=== PATIENT | male | born 1990 | race Caucasian/White ===

== ENCOUNTER 2022-01-13 18:38 | Emergency (ER) | payer BC, SELFPAY ==
[2022-01-13 19:16] VITALS: BP 118/83; PULSE 77; RESP 18; TEMP 37.1; O2SAT 99; BMI 24.7
[2022-01-13] MEDS: HYOSCYAMINE SULFATE 0.125 MG TAB 0.25 MG SUBLINGUAL (20:56)
[2022-01-13] MEDS: KETOROLAC 60 MG/2 ML inj IM (20:57)
[2022-01-13] MEDS: GI COCKTAIL (VISC LIDO/ANTACID) 30 ML PO (21:00)
[2022-01-13] MEDS: OMEPRAZOLE 20 MG CAPSULE DR 40 MG PO (21:03)
[2022-01-13 22:00] VITALS: BP 112/70; PULSE 72; RESP 16; TEMP 36.7; O2SAT 96
--- NOTE | 2022-01-14 15:18 | ED.ABDPAIN ---
HPI - Abdominal Pain General Chief Complaint: Abdominal Pain Stated Complaint: Abdominal Pain Source: patient, RN notes reviewed and old records reviewed Mode of arrival: ambulatory Limitations: no limitations History of Present Illness HPI narrative: 31-year-old man returning to the emergency department with 2 days again of flaring abdominal pain. Underlying history of peptic ulcer disease, eosinophilic esophagitis and GERD (there seems to have been a question of hiatal hernia as well) with CT on January 02 noting thickening of the gastric antrum and duodenum consistent with PUD. More recent follow-up CT did not demonstrate this, essentially unremarkable. Mr. Maddy penny was on last visit to the emergency department prescribed viscous lidocaine foot to make GI cocktail switch it sounds like he is often taking 3 times a day. He says is not helping really anymore. He has only needed Zofran couple of times. I believe he has been taking Zantac. Unclear whether not he has taken his hyoscyamine. He has continued with Carafate q.i.d. dosing. Had been on a proton pump inhibitor but he says that his insurance maxed and so he has not had his what I believe was pantoprazole for a few weeks now. I admonished Mr. Flores in my last visit with him, 2 visits ago to this emergency department, to make some major dietary changes, lifestyle changes. And potentially consult with surgery if hiatal hernia is thought to be an issue. He continues to smoke cigarettes though says he has cut down a is smoking about a half a pack a day now. He has also cut down his Mountain Dew though arrives here with a can. He says he is replaced with Gatorade. He can stand water. Other dietary measures are more unclear. He rarely drinks alcohol it sounds like. He describes a burning pain like someone punching in the stomach as well. Has not yet had an EGD. He says he is trying to schedule with Dr. Galindo though and I press him on this it sounds as though there may be a January appointment already scheduled-?I think so?. Though he says he barely eats he may have dropped a couple lbs...maybe a few. He says he has been staying well hydrated. He is trying to eat 1 time a day at least. No melena described no hematochezia. I believe vomiting. No fever. Denies constipation Past medical surgical history as reviewed by me--- Does include eosinophilic esophagitis and a history of GERD, moderate persistent asthma without complication, history of anxiety, otitis media with tympanic membrane rupture in the past, history of surgery to hips and hand, this is a left hip arthroscopic labral repair, decompression, femoroplasty, hardware removal. Underlying history of psychosis at 1 point, some years ago. History of headaches. History of crush injury of fingers. Cellulitis of the foot, chest wall contusion. Did review imaging from December 22, 2020, showed some moderate thickening, mucosal hyperemia of the gastric antrum on abdomen and pelvis CT, 1st suspected peptic ulcer disease. Hepatomegaly and hepatic steatosis as well. Reports history of hiatal hernia. Nicotine dependence Family history- denies gastrointestinal carcinoma Related Data Home Medications Medication Instructions Recorded Confirmed albuterol sulfate 2.5 mg/3 mL mg 01/13/22 (0.083 %) solution for nebulization albuterol sulfate 90 mcg/actuation INHALATION 01/13/22 aerosol inhaler (Ventolin HFA) famotidine 20 mg tablet mg 01/13/22 lidocaine HCl 2 % mucosal solution 01/13/22 (Lidocaine Viscous) ondansetron 4 mg disintegrating mg 01/13/22 tablet pantoprazole 40 mg tablet,delayed mg PO 01/13/22 release sucralfate 1 gram tablet 01/13/22 Previous Rx's Medication Instructions Recorded dicyclomine 20 mg tablet 20 mg PO TID #45 tab 01/13/22 omeprazole 40 mg capsule,delayed 40 mg PO DAILY #30 cap 01/13/22 release Allergies Allergy/AdvReac Type Severity Reaction Status Date / Time No Known Drug Allergies Allergy Verified 01/13/22 19:27 Review of Systems Status of ROS Reports: 10 or more systems reviewed and unremarkable except as noted in History and below PFSH PFS Social History Smoking Status: Current every day smoker What tobacco products do you use: cigarettes Smoking packs per day: 1 Smoking cigarettes per day: 20.0 Years smoked: 17 Smoking pack-years: 17.00 Do you use any of these nicotine containing products: None Second hand tobacco smoke exposure: No How often do you have a drink containing alcohol: monthly or less How many standard drinks containing alcohol do you have on a typical day: 1 or 2 How often do you have six or more drinks on one occasion: Never AUDIT-C Alcohol total score: 1 Non-prescribed substance use: denies use service: No Exam Narrative: Exam Narrative: General-slim. Curled up in the bed upright, grimacing at times in apparent discomfort. Calm. Otherwise not demonstrating. Cranial nerves 2-12 intact moving all extremities without difficulty. Cigarette smoke and darkened fingers. HEENT-partially edentulate, hyperemic oropharynx. Atraumatic head Lungs-clear CV-RRR no MRG Abdomen is flat soft mildly tender in the epigastrium. No masses appreciated. Indicates area of discomfort though a little bit more in the mid abdomen as far as his sensation of pain goes generally. Normoactive bowel sounds. No peritoneal signs. Skin is warm and dry Extremities without edema. Well perfused. Const: Vital Signs, click to edit/add: Vital Signs - 24 hr 01/13/22 19:16 01/13/22 22:00 Temperature 98.8 F 98.1 F Pulse Rate [Pulse Oximeter] 77 72 Respiratory Rate 18 16 Blood Pressure [Ri ght Upper Arm] 118/83 112/70 Pulse Oximetry 99 96 Course Course Hospital Course: And does not appear that there is anything new here. Periodically and will have flares of pain. His abdomen is without red flag symptoms on exam. I discuss helping him break this pain cycle. He does not readily have a ride available. Ultimately we settle on a combination of what we had done before. He is given hyoscyamine, shot of ketorolac, GI cocktail, omeprazole 40 mg. After about an hour, little bit more, he does report improvement such that he feels he can go home. Vital Signs Vital signs: Initial Vital Signs Temperature 98.8 F 01/13/22 19:16 Temperature Source Temporal Artery Scan 01/13/22 19:16 Pulse Rate 77 01/13/22 19:16 Pulse Rhythm 01/13/22 19:16 Respiratory Rate 18 01/13/22 19:16 Blood Pressure 118/83 01/13/22 19:16 Blood Pressure Mean 94 01/13/22 19:16 Blood Pressure Position Supine 01/13/22 19:16 Pulse Oximetry 99 01/13/22 19:16 Oxygen Delivery Method 01/13/22 19:16 Vital Signs Temperature 98.8 F 01/13/22 19:16 Pulse Rate 77 01/13/22 19:16 Respiratory Rate 18 01/13/22 19:16 Blood Pressure 118/83 01/13/22 19:16 Pulse Oximetry 99 01/13/22 19:16 Temperature 98.1 F 01/13/22 22:00 Pulse Rate 72 01/13/22 22:00 Respiratory Rate 16 01/13/22 22:00 Blood Pressure 112/70 01/13/22 22:00 Pulse Oximetry 96 01/13/22 22:00 MDM - Abdominal Pain MDM Narrative Medical decision making narrative: I did discuss again dietary modifications that I think would be necessary for Farooq to adopt. Lifestyle changes as well would be critical. He does have follow-up with Dr. Galindo in Gastroenterology, I think. He will need to verify that appointment. He is becoming fairly maximally dosed/treated from a medical standpoint. However he has been without a proton pump inhibitor for several weeks. Was given a dose here. I did represcribe omeprazole 40 mg dosing as the pantoprazole per my understanding from conversation with him is that the pantoprazole is no longer covered. If he would have a flare of pain also discussed pain medication needs. I would seem that oral NSAIDs like ibuprofen or ketorolac that may have been helpful here today, would not be a good idea. Therefore given a small quantity of [place] from [facility]. We will also trial dicyclomine, I do a some concerns given his past medical. This would likely be better on an as-needed basis. He does have follow up after the weekend with primary care provider. I think he would benefit from a visit with a technology training associate. Encouraged to quit smoking and avoid carbonated/acidic beverages. Medical Records Attestation: I reviewed the patient's medical records. Discharge Plan Discharge Clinical Impression: Gastritis, Abdominal pain Patient Disposition: Home, Self-Care Condition: Improved Additional Instructions: Please be sure to follow up on Saturday as planned with your primary care provider. And confirm that January appointment with Dr. Galindo. Since you are telling me that pantoprazole is no longer covered for you and that you have not been taking it for weeks, switch over to omeprazole again; see prescription. You also have a prescription of dicyclomine you can take for cramping if the hyoscyamine is not working. can continue with your famotidine or ranitidine, whichever one is the one that you using. This can be somewhat taken on an as needed basis Return for persistent uncontrolled abdominal pain, associated fever. Prescriptions: New omeprazole 40 mg capsule,delayed release(DR/EC) 40 mg PO DAILY Qty: 30 3RF dicyclomine 20 mg tablet 20 mg PO TID Qty: 45 2RF Rx Instructions: for abdominal cramping No Action albuterol sulfate 2.5 mg /3 mL (0.083 %) solution for nebulization 0RF Label Comments: INHALE 3 ML (1 VIAL) VIA A NEBULIZER EVERY 4 HOURS NEEDED famotidine 20 mg tablet 0RF Label Comments: TAKE ONE TABLET BY MOUTH TWICE DAILY albuterol sulfate [Ventolin HFA] 90 mcg/actuation HFA aerosol inhaler INHALATION 0RF Label Comments: INHALE ONE OR TWO PUFFS BY MOUTH EVERY FOUR HOURS FOR SHORTNESS OF BREATH sucralfate 1 gram tablet 0RF Label Comments: TAKE ONE TABLET BY MOUTH FOUR TIMES DAILY pantoprazole 40 mg tablet,delayed release (DR/EC) PO 0RF Label Comments: TAKE ONE TABLET BY MOUTH ONE TIME DAILY lidocaine HCl [Lidocaine Viscous] 2 % solution 0RF Label Comments: MIX 15-30 ML WITH AN EQUIVALENT AMOUNT OF LIQUID ANTACID/ANTIGAS AND TAKE BY MOUTH TWICE DAILY NEEDED ondansetron 4 mg tablet,disintegrating 0RF Follow Up/Referrals: Shabana Morgan PA-C [Primary Care Provider] - Stand Alone [facility]
== END 2022-01-13 22:40 | disposition home or self-care (01) ==
PROVIDERS: Emergency Provider Family Medicine; PCP Physician Assistant Medical
DX: R10.9 Unspecified abdominal pain (principal); K29.70 Gastritis, unspecified, without bleeding
CPT/HCPCS: 96372; 99283; 99284; A9270; J1885

== ENCOUNTER 2022-06-25 07:30 | Day surgery (SDC) | payer BC, SELFPAY ==
[2022-06-25] MEDS: SODIUM CHLORIDE 0.9 % (FLUSH) 10 ML SYRINGE IVF (07:52)
[2022-06-25] MEDS: LACTATED RINGERS 1000 ML 1,000 ML 100 ML IV ×2 (07:52→10:05)
[2022-06-25 08:05] VITALS: BP 120/76; PULSE 79; RESP 18; TEMP 36.6; O2SAT 100; BMI 24.0
--- NOTE | 2022-06-25 08:09 | SUR.PREOP ---
Visualized patient's home covid test, results negative.
[2022-06-25] MEDS: BACITRACIN OINTMENT BULK TUBE 1 APPLIC TOPICAL (09:18)
[2022-06-25 09:25] VITALS: BP 95/44; PULSE 71; RESP 16; O2SAT 94
--- NOTE | 2022-06-25 09:25 | PM.GSPRC ---
Operative Note Date of procedure: 06/25/22 Type of Procedure: 1. Vasectomy. Procedure Description: After discussing the risks and benefits of the procedure, the patient signed informed consent.? The operative site was marked and the patient was brought to the operating room and placed on the operating table in supine position.? Care was taken to pad the patient's pressure points.?? The patient was then Sedated by anesthesia.?? The operative site was then prepped and draped in the usual sterile fashion.? A time-out was then performed. I first started on the right side. The right vas deferens was located in the scrotum.The vas was grasped with my fingers. 1% Lidocaine was injected at the site of surgical incision and around the vas deferens. The right scrotal incision was made with a scalpel. Soft tissues were dissected with a fine dissecting clamp. The vas deferens was clamped with a ring clamp. Fibrous tissue encasing the vas was peeled off bluntly until it was clear. Clips were placed on the proximal and distal ends of the vas deferens and 1 cm segment was excised. This segment was sent to pathology as the right vas deferens. Minimal oozing was seen from a vein adjacent to vas deferens and that was controlled with vascular clips. I then proceeded on the left side. The left vas deferens was located in the scrotum. The vas was grasped with my fingers. 1% Lidocaine was injected at the site of surgical incision and around the vas deferens. The left scrotal incision was made with a scalpel. Soft tissues were dissected with a fine dissecting clamp. The vas deferens was clamped with a ring clamp. Fibrous tissue encasing the vas was peeled off bluntly until it was clear. Clips were placed on the proximal and distal ends of the vas deferens and 1 cm segment was excised. This segment was sent to pathology as the left vas deferens. Minimal oozing was seen from a vein adjacent to vas deferens and that was controlled with vascular clips. Bilateral incisions were left open. Sterile gauze and Neosporin were placed over the incisions. ? The patient was then woken and transported to the recovery area in stable condition. ? The patient tolerated the procedure well. Anesthesia: MAC and local Surgeon: Kelsey Posadas MD Condition: stable Disposition: same day
--- NOTE | 2022-06-25 09:29 | W.ANESCHARGE ---
Anesthesia Charges Start Date/Time Anesthesia Start Date: 06/25/22 Anesthesia Start Time: 08:55 Stop Date/Time Anesthesia Stop Date: 06/25/22 Anesthesia Stop Time: 09:27 Summary Emergency: No
[2022-06-25 09:30] VITALS: BP 95/46; PULSE 71; RESP 16; O2SAT 95
--- NOTE | 2022-06-25 09:41 | W.ANESCHARGE ---
Anesthesia Charges Start Date/Time Anesthesia Start Date: 06/25/22 Anesthesia Start Time: 08:55 Stop Date/Time Anesthesia Stop Date: 06/25/22 Anesthesia Stop Time: 09:27 Summary Emergency: No
[2022-06-25 09:45] VITALS: BP 91/46; PULSE 63; RESP 16; O2SAT 97
[2022-06-25 10:00] VITALS: BP 93/46; PULSE 62; RESP 16; O2SAT 97
[2022-06-25 10:15] VITALS: BP 100/68; PULSE 73; RESP 16; O2SAT 99
== END 2022-06-25 10:25 | disposition home or self-care (01) ==
PROVIDERS: PCP Physician Assistant Medical; Visit Provider Surgery
PROC: (CPT 55250; principal; 2022-06-25 09:00)
DX: Z30.2 Encounter for sterilization (principal)
CPT/HCPCS: 55250; 00920; 00921; 88302; J1100; J1885; J2250; J2405; J2704; J3010; J7120

== ENCOUNTER 2022-09-09 07:34 | Emergency (ER) | payer BC, SELFPAY ==
[2022-09-09 07:41] VITALS: BP 135/83; PULSE 83; RESP 18; TEMP 36.6; O2SAT 100; BMI 22.7
--- NOTE | 2022-09-09 08:12 | ED_ITS ---
HPI - Abdominal Pain General Chief Complaint: Abdominal Pain Stated Complaint: Abdominal pain Time Seen by Provider: 09/09/22 07:57 History of Present Illness HPI narrative: This 31-year-old male comes in with upper epigastric abdominal pain. He states that he has a hiatal hernia and has recurrent pain typical to his current symptoms. He states that this pain came a couple days ago and has been intermittent during these past couple days. He does not report any fevers, vomiting, or diarrhea. He is taking ibuprofen and Vicodin which she states is for his hip pain. He also is taking Pepcid and Prilosec. He states that he is had a GI cocktail in the past which has helped him. He arrives here with normal vital signs. Related Data Home Medications Medication Instructions Recorded Confirmed albuterol sulfate 2.5 mg/3 mL mg 01/13/22 (0.083 %) solution for nebulization albuterol sulfate 90 mcg/actuation 1 - 2 puff inhalation Q4H PRN 01/13/22 06/25/22 aerosol inhaler (Ventolin HFA) famotidine 20 mg tablet 20 mg PO BID 01/13/22 06/25/22 lidocaine HCl 2 % mucosal solution 01/13/22 (Lidocaine Viscous) ondansetron 4 mg disintegrating mg 01/13/22 tablet pantoprazole 40 mg tablet,delayed mg PO 01/13/22 release sucralfate 1 gram tablet 01/13/22 acetaminophen 500 mg tablet 500 mg PO Q6H PRN 06/25/22 06/25/22 (Acetaminophen Extra Strength) cyclobenzaprine 10 mg tablet 10 mg PO TID PRN 06/25/22 06/25/22 fluticasone propionate 220 1 inh inhalation BID 06/25/22 06/25/22 mcg/actuation HFA aerosol inhaler (Flovent HFA) gabapentin 300 mg capsule mg 06/25/22 hydrocodone 5 mg-acetaminophen 325 1 tab PO BID PRN 06/25/22 06/25/22 mg tablet ibuprofen 800 mg tablet (IBU) 800 mg PO TID 06/25/22 06/25/22 meloxicam 15 mg tablet 15 mg PO DAILY 06/25/22 06/25/22 nabumetone 500 mg tablet 500 mg PO BID 06/25/22 06/25/22 naproxen 500 mg tablet,delayed 500 mg PO BID 06/25/22 06/25/22 release (EC-Naprosyn) ondansetron HCl 8 mg tablet 8 mg PO Q8H PRN 06/25/22 06/25/22 pantoprazole 40 mg tablet,delayed 40 mg PO DAILY 06/25/22 06/25/22 release (Protonix) sucralfate 100 mg/mL oral 1 g PO QID 06/25/22 06/25/22 suspension (Carafate) venlafaxine 75 mg capsule,extended 75 mg PO DAILY 06/25/22 06/25/22 release 24 hr (Effexor XR) Previous Rx's Medication Instructions Recorded dicyclomine 20 mg tablet 20 mg PO TID #45 tabs 01/13/22 omeprazole 40 mg capsule,delayed 40 mg PO DAILY #30 caps 01/13/22 release Allergies Allergy/AdvReac Type Severity Reaction Status Date / Time No Known Drug Allergies Allergy Verified 06/25/22 08:01 Review of Systems Status of ROS Reports: 10 or more systems reviewed and unremarkable except as noted in History and below Narrative Constitutional: No fevers, no weight gain or loss. Eyes: No discharge. No vision changes. HENT: No congestion, no sore throat, no ear pain. Cardiovascular: No chest pain, no palpitations. Respiratory: No shortness of breath, no wheezes, no cough. Gastrointestinal: No diarrhea. Upper epigastric abdominal pain as described above. Genitourinary: No dysuria, no hematuria. Musculoskeletal: Normal range of motion. Skin: No rashes, no pruritis. Neurological: No dizziness, weakness, sensory change, speech change. Endo/Heme/Allergies: No bruising or bleeding. No polydipsia. Pysch: no suicidality, no anxiety, no insomnia. All other systems reviewed and are negative. [facility] Medical History (Updated 09/09/22 @ 09:23 by Scotty Deleon MD) Anxiety Eosinophilic esophagitis Femoroacetabular impingement of right hip Moderate persistent asthma, uncomplicated Mood disorder Psychosis Social History Smoking Status: Current every day smoker What tobacco products do you use: cigarettes Smoking packs per day: 1 Smoking cigarettes per day: 20.0 Years smoked: 17 Smoking pack-years: 17.00 Do you use any of these nicotine containing products: None Second hand tobacco smoke exposure: No How often do you have a drink containing alcohol: monthly or less How many standard drinks containing alcohol do you have on a typical day: 1 or 2 How often do you have six or more drinks on one occasion: Never AUDIT-C Alcohol total score: 1 Non-prescribed substance use: denies use Caffeine: Yes service: No Exam Narrative: Exam Narrative: Constitutional: Well-developed, well-nourished, no acute distress. HEENT: Normocephalic, atraumatic. Neck: Normal range of motion. Nontender. Supple. Heart: Regular. No murmurs. Normal rate. Intact distal pulses. Lungs: Clear to auscultation. No chest discomfort. No wheezes, rhonchi, or rales. Abdomen: Normal bowel sounds. Tenderness in the upper epigastric region. No rebound tenderness. Genitalia: Deferred. Back: No midline tenderness. Normal range of motion. Extremities: Normal range of motion. No injury. Skin: Intact. No rash. Warm. No erythema or pallor. Neurologic: No altered sensation. No weakness. Alert and oriented. Psychiatric: No suicidality. No anxiety or depression. No insomnia. Nursing notes and vitals signs are reviewed. Const: Vital Signs, click to edit/add: Vital Signs - 24 hr 09/09/22 07:41 Temperature 97.9 F Pulse Rate [Right Pulse Oximeter] 83 Respiratory Rate 18 Blood Pressure [Ri ght Upper Arm] 135/83 Pulse Oximetry 100 Oxygen Delivery Me thod Room Air Course Vital Signs Vital signs: Initial Vital Signs Temperature 97.9 F 09/09/22 07:41 Temperature Source Temporal Artery Scan 09/09/22 07:41 Pulse Rate 83 09/09/22 07:41 Respiratory Rate 18 09/09/22 07:41 Blood Pressure 135/83 09/09/22 07:41 Blood Pressure Mean 100 09/09/22 07:41 Blood Pressure Position Sitting 09/09/22 07:41 Pulse Oximetry 100 09/09/22 07:41 Oxygen Delivery Method 09/09/22 07:41 Vital Signs Temperature 97.9 F 09/09/22 07:41 Pulse Rate 83 09/09/22 07:41 Respiratory Rate 18 09/09/22 07:41 Blood Pressure 135/83 09/09/22 07:41 Pulse Oximetry 100 09/09/22 07:41 Oxygen Delivery Method 09/09/22 07:41 Temperature 97.9 F 09/09/22 07:41 Pulse Rate 83 09/09/22 07:41 Respiratory Rate 18 09/09/22 07:41 Blood Pressure 135/83 09/09/22 07:41 Pulse Oximetry 100 09/09/22 07:41 Oxygen Delivery Method 09/09/22 07:41 MDM - Abdominal Pain MDM Narrative Medical decision making narrative: This patient comes in with upper epigastric abdominal pain that is recurrent and chronic which she attributes to a hiatal hernia. He states that he is taking Prilosec 40 mg daily and Pepcid. He is also taking Vicodin and ibuprofen daily for hip pain. An IV was established where he received 500 mL of fluids along with Toradol 30 mg and a GI cocktail orally. This brought sufficient relief to his symptoms. He has normal lab results. He is okay to be discharged home. I advised him to increase his Prilosec to twice a day for a week or 10 days. Additionally his chronic use of ibuprofen may be contributing to his symptoms so encouraged that he discontinue this medication. Lab Data Labs: Lab Results 09/09/22 09/09/22 Range/Units 08:30 08:30 WBC 9.03 (4.50-11.00) K/uL RBC 4.44 (4.30-5.90) m/uL Hgb 14.5 (13.5-17.5) gm/dL Hct 40.8 (37.0-53.0) % MCV 92 (80-100) fL MCH 33 (26-34) pg MCHC 36 (32-36) gm/dL RDW Coeff of Samy 11.1 L (11.5-15.5) % Plt Count 361 (140-440) K/uL Neut % (Auto) 71.3 (42.0-72.0) % Lymph % (Auto) 17.6 L (20-44) % [place] % (Auto) 7.0 (0.0-11.0) % Eos % (Auto) 2.9 (0.0-7.0) % Baso % (Auto) 0.3 (0.0-3.0) % Neut # (Auto) 6.44 (1.7-7.0) K/uL Lymph # (Auto) 1.60 (0.90-2.90) K/uL [place] # (Auto) 0.60 (0.00-0.90) K/UL Eos # (Auto) 0.26 (0.00-0.50) K/uL Baso # (Auto) 0.03 (0.00-0.30) K/uL Sodium 141 (135-149) mmol/L Potassium 4.2 (3.6-5.1) mmol/L Chloride 107 (96-114) mmol/L Carbon Dioxide 26 (20-32) mmol/L BUN 5 (5-24) mg/dL Creatinine 0.8 (0.5-1.5) mg/dL Estimated Creat Clear 139.91 Estimated GFR 121 ml/min Glucose 103 (60-115) mg/dL Calcium 9.4 (8.4-10.6) mg/dL Discharge Plan Discharge Clinical Impression: Gastritis, Hernia, hiatal Patient Disposition: Home, Self-Care Condition: Improved Additional Instructions: Okay to increase Prilosec to 40 mg twice daily for a week or 10 days. Is recommended to discontinue ibuprofen as this may be contributing to these symptoms. Follow up with MD or return if worsening. Prescriptions: No Action albuterol sulfate 2.5 mg /3 mL (0.083 %) solution for nebulization Label Comments: INHALE 3 ML (1 VIAL) VIA A NEBULIZER EVERY 4 HOURS NEEDED famotidine 20 mg tablet 20 mg PO BID Label Comments: TAKE ONE TABLET BY MOUTH TWICE DAILY albuterol sulfate [Ventolin HFA] 90 mcg/actuation HFA aerosol inhaler 1 - 2 puff INHALATION Q4H PRN Label Comments: INHALE ONE OR TWO PUFFS BY MOUTH EVERY FOUR HOURS FOR SHORTNESS OF BREATH sucralfate 1 gram tablet Label Comments: TAKE ONE TABLET BY MOUTH FOUR TIMES DAILY pantoprazole 40 mg tablet,delayed release (DR/EC) PO Label Comments: TAKE ONE TABLET BY MOUTH ONE TIME DAILY lidocaine HCl [Lidocaine Viscous] 2 % solution Label Comments: MIX 15-30 ML WITH AN EQUIVALENT AMOUNT OF LIQUID ANTACID/ANTIGAS AND TAKE BY MOUTH TWICE DAILY NEEDED ondansetron 4 mg tablet,disintegrating omeprazole 40 mg capsule,delayed release(DR/EC) 40 mg PO DAILY Qty: 30 3RF dicyclomine 20 mg tablet 20 mg PO TID Qty: 45 2RF Rx Instructions: for abdominal cramping acetaminophen [Acetaminophen Extra Strength] 500 mg tablet 500 mg PO Q6H PRN cyclobenzaprine 10 mg tablet 10 mg PO TID PRN fluticasone propionate [Flovent HFA] 220 mcg/actuation HFA aerosol inhaler 1 inh inhalation BID gabapentin 300 mg capsule Label Comments: TAKE ONE CAPSULE BY MOUTH AT BEDTIME hydrocodone-acetaminophen 5-325 mg tablet 1 tab PO BID PRN ibuprofen [IBU] 800 mg tablet 800 mg PO TID meloxicam 15 mg tablet 15 mg PO DAILY nabumetone 500 mg tablet 500 mg PO BID naproxen [EC-Naprosyn] 500 mg tablet,delayed release (DR/EC) 500 mg PO BID ondansetron HCl 8 mg tablet 8 mg PO Q8H PRN Rx Instructions: 1st dose 1-2 hr before radiation pantoprazole [Protonix] 40 mg tablet,delayed release (DR/EC) 40 mg PO DAILY sucralfate [Carafate] 100 mg/mL suspension 1 g PO QID venlafaxine [Effexor XR] 75 mg capsule,extended release 24hr 75 mg PO DAILY Follow Up/Referrals: Shabana Morgan PA-C [Primary Care Provider] - Stand Alone Forms: [facility] Info Instructions
[2022-09-09] MEDS: 0.9 % SODIUM CHLORIDE 500 ML 500 ML IV (08:30)
[2022-09-09] MEDS: ONDANSETRON 2 MG/ML inj 4 MG IVP (08:31)
[2022-09-09] MEDS: KETOROLAC 30 MG/ML inj IVP (08:32)
[2022-09-09] MEDS: GI COCKTAIL (VISC LIDO/ANTACID) 30 ML PO (08:35)
[2022-09-09 08:40] LABS: Basophils Absolute Auto 0.03 K/uL (0.00-0.30); Basophils Percent Auto 0.3 % (0.0-3.0); Eosinophils Absolute Auto 0.26 K/uL (0.00-0.50); Eosinophils Percent Auto 2.9 % (0.0-7.0); Hematocrit 40.8 % (37.0-53.0); Hemoglobin* 14.5 gm/dL (13.5-17.5); Immature Granulocytes Abs Auto 0.08 K/uL (0.00-0.30); Immature Granulocytes Pct Auto 0.9 %; Lymphocytes Percent Auto 17.6 % (20-44); Mean Corpuscular HGB Conc 36 gm/dL (32-36); Mean Corpuscular Hemoglobin 33 pg (26-34); Mean Corpuscular Volume 92 fL (80-100); Neutrophils Absolute Auto 6.44 K/uL (1.7-7.0); Neutrophils Percent Auto 71.3 % (42.0-72.0); Platelet Count* 361 K/uL (140-440); RDW Coefficient of Variation % 11.1 % (11.5-15.5); Red Blood Count 4.44 m/uL (4.30-5.90); White Blood Count* 9.03 K/uL (4.50-11.00)
[2022-09-09 08:43] LABS: Slide Review Reflex No
[2022-09-09 08:58] LABS: Chloride* 107 mmol/L (96-114); Potassium* 4.2 mmol/L (3.6-5.1); Sodium* 141 mmol/L (135-149)
[2022-09-09 09:01] LABS: Blood Urea Nitrogen* 5 mg/dL (5-24); Carbon Dioxide* 26 mmol/L (20-32); Creatinine* 0.8 mg/dL (0.5-1.5); Est. Creatinine Clearance* 139.91; Estimated Glomerular Filt Rate 121 ml/min; Glucose* 103 mg/dL (60-115)
[2022-09-09 09:02] LABS: Calcium* 9.4 mg/dL (8.4-10.6)
== END 2022-09-09 09:31 | disposition home or self-care (01) ==
PROVIDERS: Emergency Provider Emergency Medicine Emergency Medical Services; PCP Physician Assistant Medical
DX: K29.70 Gastritis, unspecified, without bleeding (principal); K44.9 Diaphragmatic hernia without obstruction or gangrene
CPT/HCPCS: 36415; 80048; 85025; 96374; 96375; 99284; A9270; J1885; J2405; J7120

== ENCOUNTER 2022-09-30 16:45 | Emergency (ER) | payer BC, SELFPAY ==
[2022-09-30 16:51] VITALS: BP 156/77; RESP 18; TEMP 37.7; O2SAT 98; BMI 23.7
--- NOTE | 2022-09-30 17:03 | ED.ABDPAIN ---
HPI - Abdominal Pain General Time Seen by Provider: 17:03 Date Seen: 09/30/22 Chief Complaint: Abdominal Pain Stated Complaint: worsening stomach and flank pain Time Seen by Provider: 09/30/22 16:47 Source: patient, RN notes reviewed and old records reviewed Mode of arrival: ambulatory Limitations: no limitations History of Present Illness HPI narrative: Patient is a 31-year-old male coming in with complaint of abdominal pain for over a month. He was seen last month in the ER, no reviewed. He has a history reported hiatal hernia and GERD. States the pain is progressed. He points to both sides of his upper abdomen where he is feeling the pain and he states it radiates and wraps around into his ?kidney areas?. It is reportedly disrupting his sleep, waking up sometimes from the pain. Is not eating as much. Feels like he has maybe lost some weight. Has not noted any fevers. Notes no changes in urination. No diarrhea, does note decreased bowel movements but admits he is not eating as much. He has had nausea, occasional vomiting. No urinary changes. He received GI cocktail some IV fluids last time he was in. He had some basic laboratory evaluation, did not require any imaging. He is not aware of any family history that is pertinent. Denies any alcohol use. Does smoke. No prior abdominal surgeries. He states he has been taking too much Tylenol. Related Data Home Medications Medication Instructions Recorded Confirmed albuterol sulfate 2.5 mg/3 mL mg 01/13/22 (0.083 %) solution for nebulization albuterol sulfate 90 mcg/actuation 1 - 2 puff inhalation Q4H PRN 01/13/22 06/25/22 aerosol inhaler (Ventolin HFA) famotidine 20 mg tablet 20 mg PO BID 01/13/22 06/25/22 lidocaine HCl 2 % mucosal solution 01/13/22 (Lidocaine Viscous) ondansetron 4 mg disintegrating mg 01/13/22 tablet pantoprazole 40 mg tablet,delayed mg PO 01/13/22 release sucralfate 1 gram tablet 01/13/22 acetaminophen 500 mg tablet 500 mg PO Q6H PRN 06/25/22 06/25/22 (Acetaminophen Extra Strength) cyclobenzaprine 10 mg tablet 10 mg PO TID PRN 06/25/22 06/25/22 fluticasone propionate 220 1 inh inhalation BID 06/25/22 06/25/22 mcg/actuation HFA aerosol inhaler (Flovent HFA) gabapentin 300 mg capsule mg 06/25/22 hydrocodone 5 mg-acetaminophen 325 1 tab PO BID PRN 06/25/22 06/25/22 mg tablet ibuprofen 800 mg tablet (IBU) 800 mg PO TID 06/25/22 06/25/22 meloxicam 15 mg tablet 15 mg PO DAILY 06/25/22 06/25/22 nabumetone 500 mg tablet 500 mg PO BID 06/25/22 06/25/22 naproxen 500 mg tablet,delayed 500 mg PO BID 06/25/22 06/25/22 release (EC-Naprosyn) ondansetron HCl 8 mg tablet 8 mg PO Q8H PRN 06/25/22 06/25/22 pantoprazole 40 mg tablet,delayed 40 mg PO DAILY 06/25/22 06/25/22 release (Protonix) sucralfate 100 mg/mL oral 1 g PO QID 06/25/22 06/25/22 suspension (Carafate) venlafaxine 75 mg capsule,extended 75 mg PO DAILY 06/25/22 06/25/22 release 24 hr (Effexor XR) Previous Rx's Medication Instructions Recorded dicyclomine 20 mg tablet 20 mg PO TID #45 tabs 01/13/22 omeprazole 40 mg capsule,delayed 40 mg PO DAILY #30 caps 01/13/22 release sucralfate 1 gram tablet (Carafate) 1 g PO Q6H #40 tabs 09/30/22 Allergies Allergy/AdvReac Type Severity Reaction Status Date / Time No Known Drug Allergies Allergy Verified 09/30/22 16:54 Review of Systems Status of ROS Reports: 10 or more systems reviewed and unremarkable except as noted in History and below [facility] Medical History Anxiety Eosinophilic esophagitis Femoroacetabular impingement of right hip Moderate persistent asthma, uncomplicated Mood disorder Psychosis Social History Smoking Status: Current every day smoker What tobacco products do you use: cigarettes Smoking packs per day: 1 Smoking cigarettes per day: 20.0 Years smoked: 17 Smoking pack-years: 17.00 Do you use any of these nicotine containing products: E-Cigarettes and Vaping Products Second hand tobacco smoke exposure: No How often do you have a drink containing alcohol: never AUDIT-C Alcohol total score: 0 Non-prescribed substance use: marijuana (any form) Caffeine: Yes service: No Exam Const: Vital Signs, click to edit/add: Vital Signs - 24 hr 09/30/22 16:51 09/30/22 17:38 Temperature 99.8 F H Respiratory Rate 18 Blood Pressure 144/90 H Blood Pressure [Ri ght Upper Arm] 156/77 H Pulse Oximetry 98 Oxygen Delivery Me thod Room Air Documenting provider has reviewed patient's vital signs: yes Common normals: no apparent distress, oriented x3, no limitations and alert General appearance: cooperative, comfortable and well kempt Nutritional appearance: thin HENMT: Common normals: normocephalic, head/scalp atraumatic, hearing grossly normal bilaterally, TM's normal bilaterally, external nose normal, nasal mucous membranes and turbinates normal, moist oral mucous membranes, oropharynx normal (But is edentulous) and gingiva normal Head and scalp: normocephalic and atraumatic Nose: external nose normal and nasal mucous membranes and turbinates normal Tympanic membrane: TM's normal bilaterally Eye: Common normals: PERRL, EOMs intact bilaterally, conjunctivae normal and no scleral icterus Conjunctiva: conjunctiva(e) normal Pupil: PERRL Neck & C-Spine: Common normals: full ROM, no lymphadenopathy, supple, no meningeal signs and thyroid normal Thyroid: thyroid normal Chest: Common normals: inspection of chest normal Resp: Common normals: normal respiratory effort, no retractions, no use of accessory muscles and clear to auscultation bilaterally Auscultation: clear to auscultation bilaterally Cardio: Common normals: regular rate, regular rhythm, S1 normal heart sound, S2 normal heart sound, no gallops, no clicks and no murmurs Rate: regular rate Rhythm: regular rhythm Heart sounds: S1 normal and S2 normal GI: Common normals: Normal to inspection, nondistended, normoactive bowel sounds present (Has thin abdomen, normal bowel sounds), soft to palpation, no hepatosplenomegaly and no masses Palpation: soft and no hepatosplenomegaly Other: Complains of general pain in the upper abdomen without rebound or guarding. : Common normals: no CVA tenderness Bladder/kidney exam: no CVA tenderness Back & Pelvis: Common normals: no CVA tenderness Neuro: Common normals: oriented x3 Sensorium/orientation: alert Meningeal signs: no meningeal signs Gait (neuro): normal gait Psych: Appearance: well kempt Course Course Hospital Course: Discussed options in approach of workup with patient. Given he has had pain over a month and is worsening, will recheck a full complement of labs. We are going to also obtain a CT of his abdomen pelvis with IV contrast. This does not strike me as an acute surgical abdomen based on my exam and history from him. Gastric, gallbladder issues, pancreas issues liver issues are all possible. Small bowel pathology such as inflammatory bowel disease certainly could be a risk. Will initiate L of IV fluids, 4 mg IV Zofran and 15 mg IV Toradol. If workup does not reveal any pathology or treatable etiology here, may need endoscopy. Reevaluation(s) Reevaluation #1: Reviewed with patient that his CT scan is completely normal. His labs are normal with the exception of a mild drop in his hemoglobin. He was in the 14 range when it was last checked last month. He is now down to 13.1 which is mildly anemic. He states he had a scope about a year ago. With his new current symptoms, reviewed with him that he needs an updated EGD. He states he has appointment with his primary care provider on Saturday. He is on omeprazole, famotidine. He needs to be on 40 mg of omeprazole at this time and take the famotidine twice a day. He is no longer on Carafate. I will add that back in to see if it will give him some comfort. Have asked him to minimize NSAIDs. He can stand Tylenol but needs to follow bottle directions for dosing. Discussed that I think it is his stomach, this could be gastritis, H pylori or ulcer disease. He needs further evaluation management with an EGD but does not require emergently at this time. Thus, follow up with primary care provider to get this scheduled. Time: 18:39 Vital Signs Vital signs: Initial Vital Signs Temperature 99.8 F H 09/30/22 16:51 Temperature Source Temporal Artery Scan 09/30/22 16:51 Respiratory Rate 18 09/30/22 16:51 Blood Pressure 156/77 H 09/30/22 16:51 Blood Pressure Mean 103 09/30/22 16:51 Blood Pressure Position Sitting 09/30/22 16:51 Pulse Oximetry 98 09/30/22 16:51 Oxygen Delivery Method 09/30/22 16:51 Vital Signs Temperature 99.8 F H 09/30/22 16:51 Respiratory Rate 18 09/30/22 16:51 Blood Pressure 156/77 H 09/30/22 16:51 Pulse Oximetry 98 09/30/22 16:51 Oxygen Delivery Method 09/30/22 16:51 Temperature 99.8 F H 09/30/22 16:51 Respiratory Rate 18 09/30/22 16:51 Blood Pressure 144/90 H 09/30/22 17:38 Pulse Oximetry 98 09/30/22 16:51 Oxygen Delivery Method 09/30/22 16:51 MDM - Abdominal Pain Lab Data Attestation: I reviewed the patient's lab results. Labs: Lab Results 09/30/22 09/30/22 09/30/22 Range/Units 17:30 17:30 17:30 WBC 9.59 (4.50-11.00) K/uL RBC 4.06 L (4.30-5.90) m/uL Hgb 13.1 L (13.5-17.5) gm/dL Hct 38.0 (37.0-53.0) % MCV 94 (80-100) fL MCH 32 (26-34) pg MCHC 35 (32-36) gm/dL RDW Coeff of Samy 11.2 L (11.5-15.5) % Plt Count 263 (140-440) K/uL Neut % (Auto) 66.0 (42.0-72.0) % Lymph % (Auto) 22.3 (20-44) % [place] % (Auto) 7.2 (0.0-11.0) % Eos % (Auto) 3.8 (0.0-7.0) % Baso % (Auto) 0.6 (0.0-3.0) % Neut # (Auto) 6.33 (1.7-7.0) K/uL Lymph # (Auto) 2.14 (0.90-2.90) K/uL [place] # (Auto) 0.70 (0.00-0.90) K/UL Eos # (Auto) 0.36 (0.00-0.50) K/uL Baso # (Auto) 0.06 (0.00-0.30) K/uL Sodium 133 L (135-149) mmol/L Potassium 3.8 (3.6-5.1) mmol/L Chloride 103 (96-114) mmol/L Carbon Dioxide 25 (20-32) mmol/L BUN 4 L (5-24) mg/dL Creatinine 0.7 (0.5-1.5) mg/dL Estimated Creat Clear 162.85 Estimated GFR 126 ml/min Glucose 84 (60-115) mg/dL Lactate 0.7 (0.5-1.9) mmol/L Calcium 8.6 (8.4-10.6) mg/dL Total Bilirubin 0.6 (0.1-1.5) mg/dL AST 17 (12-35) U/L ALT 18 (4-50) U/L Alkaline Phosphatase 60 (40-150) U/L C-Reactive Protein < 0.5 L (0.5-1.0) mg/dL Total Protein 6.9 (6.0-8.3) g/dL Albumin 4.3 (3.3-5.0) g/dL Lipase 61 (23-300) U/L Urine Color (Yellow) Urine Appearance (Clear) Urine pH (5.0-8.5) Ur Specific [place] (1.000-1.030) Urine Protein (Negative) Urine Glucose (UA) (Negative) Urine Ketones (Negative) Urine Blood (Negative) Urine Nitrite (Negative) Urine Bilirubin (Negative) Urine Urobilinogen (0.2-1.0) Ur Leukocyte Esterase (Negative) Urine RBC (0-2) Urine WBC (0-5) Ur Squamous Epith Cells (None-Few) Urine Bacteria (None) 09/30/22 Range/Units 17:33 WBC (4.50-11.00) K/uL RBC (4.30-5.90) m/uL Hgb (13.5-17.5) gm/dL Hct (37.0-53.0) % MCV (80-100) fL MCH (26-34) pg MCHC (32-36) gm/dL RDW Coeff of Samy (11.5-15.5) % Plt Count (140-440) K/uL Neut % (Auto) (42.0-72.0) % Lymph % (Auto) (20-44) % [place] % (Auto) (0.0-11.0) % Eos % (Auto) (0.0-7.0) % Baso % (Auto) (0.0-3.0) % Neut # (Auto) (1.7-7.0) K/uL Lymph # (Auto) (0.90-2.90) K/uL [place] # (Auto) (0.00-0.90) K/UL Eos # (Auto) (0.00-0.50) K/uL Baso # (Auto) (0.00-0.30) K/uL Sodium (135-149) mmol/L Potassium (3.6-5.1) mmol/L Chloride (96-114) mmol/L Carbon Dioxide (20-32) mmol/L BUN (5-24) mg/dL Creatinine (0.5-1.5) mg/dL Estimated Creat Clear Estimated GFR ml/min Glucose (60-115) mg/dL Lactate (0.5-1.9) mmol/L Calcium (8.4-10.6) mg/dL Total Bilirubin (0.1-1.5) mg/dL AST (12-35) U/L ALT (4-50) U/L Alkaline Phosphatase (40-150) U/L C-Reactive Protein (0.5-1.0) mg/dL Total Protein (6.0-8.3) g/dL Albumin (3.3-5.0) g/dL Lipase (23-300) U/L Urine Color Yellow (Yellow) Urine Appearance Clear (Clear) Urine pH 6.0 (5.0-8.5) Ur Specific [place] 1.015 (1.000-1.030) Urine Protein Negative (Negative) Urine Glucose (UA) Negative (Negative) Urine Ketones Negative (Negative) Urine Blood Negative (Negative) Urine Nitrite Negative (Negative) Urine Bilirubin Negative (Negative) Urine Urobilinogen 0.2 (0.2-1.0) Ur Leukocyte Esterase Negative (Negative) Urine RBC 0-2 (0-2) Urine WBC 0-2 (0-5) Ur Squamous Epith Cells Few (None-Few) Urine Bacteria None (None) Imaging Data CT scan - abdomen: Attestation: I have reviewed the pertinent imaging results. Radiologist's impression: Patient: BIANCA CHE Facility:?[facility] Patient ID:?[id number] Site Patient ID:?[id number]. Site :?[id number] Study:?CT Abdomen/Pelvis W/IV ONLY-09/30/2022 5:54:47 PM Ordering Physician:?Deloris Qiu Final Report: INDICATION: Abdominal pain for 1 month TECHNIQUE: CT abdomen and pelvis acquired with 83 mL Isovue 370 IV contrast. COMPARISON: 12/25/[address] FINDINGS: Lower chest: Unremarkable. Liver: Unremarkable. Normal in size and attenuation. No masses. Gallbladder and bile ducts: Unremarkable. No stones or inflammation. No biliary dilatation. Pancreas: Unremarkable. No mass or inflammation. Spleen: Unremarkable. Normal in size. No masses. Adrenal glands: Unremarkable. No nodules. Kidneys: Unremarkable. No masses, stones, or hydronephrosis. GI tract: Unremarkable. Normal in caliber. No sign of mass or inflammation. Normal appendix. Vasculature: Unremarkable. Mesenteric arteries are patent. Lymph nodes: No lymphadenopathy. Omentum/Peritoneum/Abdominal Wall: Unremarkable. No sign of mass or infiltration. No free air or significant free fluid. Pelvis: Unremarkable. Bones: Unremarkable for age. IMPRESSION: Normal abdomen pelvis CT. Please note that all CT scans at this facility use dose modulation, iterative reconstruction, and/or weight-based dosing when appropriate to reduce radiation dose to as low as reasonably achievable. Dictated by Andrea Resendiz MD @ 09/30/2022 6:22:32 PM (Electronic Signature) Critical Care Time Critical Care Time Critical Care Time: No Discharge Plan Discharge Clinical Impression: Anemia, Abdominal pain Patient Disposition: Home, Self-Care Condition: Stable Instructions: Diet for Stomach Ulcers and Gastritis (ED), GERD (Gastroesophageal Reflux Disease) (ED) Additional Instructions: You need to be on omeprazole 40 mg daily and take the famotidine twice daily. You can try the Carafate up to 4 times a day to see if this helps. You need to have an updated EGD. Your hemoglobin has shown a mild drop from the last time we ordered it here. Thus, concern for such things like gastritis, ulcer disease in your stomach our concerns at this time. Please review this with her primary care provider on Saturday to get scheduled for an updated EGD. Prescriptions: New sucralfate [Carafate] 1 gram tablet 1 g PO Q6H Qty: 40 0RF No Action albuterol sulfate 2.5 mg /3 mL (0.083 %) solution for nebulization Label Comments: INHALE 3 ML (1 VIAL) VIA A NEBULIZER EVERY 4 HOURS NEEDED famotidine 20 mg tablet 20 mg PO BID Label Comments: TAKE ONE TABLET BY MOUTH TWICE DAILY albuterol sulfate [Ventolin HFA] 90 mcg/actuation HFA aerosol inhaler 1 - 2 puff INHALATION Q4H PRN Label Comments: INHALE ONE OR TWO PUFFS BY MOUTH EVERY FOUR HOURS FOR SHORTNESS OF BREATH sucralfate 1 gram tablet Label Comments: TAKE ONE TABLET BY MOUTH FOUR TIMES DAILY pantoprazole 40 mg tablet,delayed release (DR/EC) PO Label Comments: TAKE ONE TABLET BY MOUTH ONE TIME DAILY lidocaine HCl [Lidocaine Viscous] 2 % solution Label Comments: MIX 15-30 ML WITH AN EQUIVALENT AMOUNT OF LIQUID ANTACID/ANTIGAS AND TAKE BY MOUTH TWICE DAILY NEEDED ondansetron 4 mg tablet,disintegrating omeprazole 40 mg capsule,delayed release(DR/EC) 40 mg PO DAILY Qty: 30 3RF dicyclomine 20 mg tablet 20 mg PO TID Qty: 45 2RF Rx Instructions: for abdominal cramping acetaminophen [Acetaminophen Extra Strength] 500 mg tablet 500 mg PO Q6H PRN cyclobenzaprine 10 mg tablet 10 mg PO TID PRN fluticasone propionate [Flovent HFA] 220 mcg/actuation HFA aerosol inhaler 1 inh inhalation BID gabapentin 300 mg capsule Label Comments: TAKE ONE CAPSULE BY MOUTH AT BEDTIME hydrocodone-acetaminophen 5-325 mg tablet 1 tab PO BID PRN ibuprofen [IBU] 800 mg tablet 800 mg PO TID meloxicam 15 mg tablet 15 mg PO DAILY nabumetone 500 mg tablet 500 mg PO BID naproxen [EC-Naprosyn] 500 mg tablet,delayed release (DR/EC) 500 mg PO BID ondansetron HCl 8 mg tablet 8 mg PO Q8H PRN Rx Instructions: 1st dose 1-2 hr before radiation pantoprazole [Protonix] 40 mg tablet,delayed release (DR/EC) 40 mg PO DAILY sucralfate [Carafate] 100 mg/mL suspension 1 g PO QID venlafaxine [Effexor XR] 75 mg capsule,extended release 24hr 75 mg PO DAILY Follow Up/Referrals: Shabana Morgan PACami [Primary Care Provider] - Stand Alone Forms: [facility] Info Instructions
--- NOTE | 2022-09-30 17:09 | CRLHL7_ITS ---
For Patients: As a result of the Century Cures Act, medical imaging exams and procedure reports are released immediately into your electronic medical record. You may view this report before your referring provider. If you have questions, please contact your health care provider. INDICATION: Abdominal pain for 1 month TECHNIQUE: CT abdomen and pelvis acquired with 83 mL Isovue 370 IV contrast. COMPARISON: 12/25/[address] FINDINGS: Lower chest: Unremarkable. Liver: Unremarkable. Normal in size and attenuation. No masses. Gallbladder and bile ducts: Unremarkable. No stones or inflammation. No biliary dilatation. Pancreas: Unremarkable. No mass or inflammation. Spleen: Unremarkable. Normal in size. No masses. Adrenal glands: Unremarkable. No nodules. Kidneys: Unremarkable. No masses, stones, or hydronephrosis. GI tract: Unremarkable. Normal in caliber. No sign of mass or inflammation. Normal appendix. Vasculature: Unremarkable. Mesenteric arteries are patent. Lymph nodes: No lymphadenopathy. Omentum/Peritoneum/Abdominal Wall: Unremarkable. No sign of mass or infiltration. No free air or significant free fluid. Pelvis: Unremarkable. Bones: Unremarkable for age. IMPRESSION: Normal abdomen pelvis CT. Please note that all CT scans at this facility use dose modulation, iterative reconstruction, and/or weight-based dosing when appropriate to reduce radiation dose to as low as reasonably achievable. Dictated by Andrea Resendiz MD @ 09/30/2022 6:22:32 PM (Electronically Signed)
[2022-09-30] MEDS: ONDANSETRON 2 MG/ML inj 4 MG IVP (17:31)
[2022-09-30] MEDS: KETOROLAC 15 MG/ML inj IVP (17:31)
[2022-09-30] MEDS: 0.9 % SODIUM CHLORIDE 1000 ml 1,000 ML IV (17:32)
[2022-09-30 17:38] VITALS: BP 144/90
[2022-09-30 17:39] LABS: Lactate* 0.7 mmol/L (0.5-1.9)
[2022-09-30 17:42] LABS: Appearance Urine Clear (Clear); Bilirubin Urine Negative (Negative); Blood Urine Negative (Negative); Color Urine Yellow (Yellow); Glucose Urine Negative (Negative); Ketones Urine Negative (Negative); Leukocyte Esterase Urine Negative (Negative); Nitrite Urine Negative (Negative); Protein Urine Negative (Negative); RBC Urine 0-2 (0-2); Specific Gravity Urine 1.015 (1.000-1.030); Squamous Epithelial Cell Urine Few (None-Few); Urobilinogen Urine 0.2 (0.2-1.0); WBC Urine 0-2 (0-5)
[2022-09-30 17:43] LABS: Basophils Absolute Auto 0.06 K/uL (0.00-0.30); Basophils Percent Auto 0.6 % (0.0-3.0); Eosinophils Absolute Auto 0.36 K/uL (0.00-0.50); Eosinophils Percent Auto 3.8 % (0.0-7.0); Hemoglobin* 13.1 gm/dL (13.5-17.5); Immature Granulocytes Abs Auto 0.01 K/uL (0.00-0.30); Immature Granulocytes Pct Auto 0.1 %; Lymphocytes Absolute Auto 2.14 K/uL (0.90-2.90); Lymphocytes Percent Auto 22.3 % (20-44); Mean Corpuscular HGB Conc 35 gm/dL (32-36); Mean Corpuscular Hemoglobin 32 pg (26-34); Mean Corpuscular Volume 94 fL (80-100); Monocytes Percent Auto 7.2 % (0.0-11.0); Neutrophils Absolute Auto 6.33 K/uL (1.7-7.0); Platelet Count* 263 K/uL (140-440); RDW Coefficient of Variation % 11.2 % (11.5-15.5); Red Blood Count 4.06 m/uL (4.30-5.90); Slide Review Reflex No; White Blood Count* 9.59 K/uL (4.50-11.00)
[2022-09-30 17:55] LABS: Chloride* 103 mmol/L (96-114)
[2022-09-30 17:56] LABS: Albumin* 4.3 g/dL (3.3-5.0); Potassium* 3.8 mmol/L (3.6-5.1); Sodium* 133 mmol/L (135-149)
[2022-09-30 17:58] LABS: Creatinine* 0.7 mg/dL (0.5-1.5); Est. Creatinine Clearance* 162.85; Estimated Glomerular Filt Rate 126 ml/min
[2022-09-30 17:59] LABS: Alanine Aminotransferase* 18 U/L (4-50); Alkaline Phosphatase* 60 U/L (40-150); Aspartate Amino Transferase* 17 U/L (12-35); Bilirubin Total* 0.6 mg/dL (0.1-1.5); Blood Urea Nitrogen* 4 mg/dL (5-24); Carbon Dioxide* 25 mmol/L (20-32); Lipase* 61 U/L (23-300); Total Protein* 6.9 g/dL (6.0-8.3)
[2022-09-30 18:00] LABS: Calcium* 8.6 mg/dL (8.4-10.6); Glucose* 84 mg/dL (60-115)
[2022-09-30 18:05] LABS: C Reactive Protein* < 0.5 mg/dL (0.5-1.0)
== END 2022-09-30 18:55 | disposition home or self-care (01) ==
PROVIDERS: Emergency Provider Family Medicine; PCP Physician Assistant Medical
DX: R10.9 Unspecified abdominal pain (principal); D64.9 Anemia, unspecified
CPT/HCPCS: 36415; 74177; 80053; 81001; 83605; 83690; 85025; 86140; 96374; 96375; 99284; J1885; J2405; J7030; Q9967

== ENCOUNTER 2022-10-01 20:58 | Emergency (ER) | payer BC, SELFPAY ==
[2022-10-01 21:00] VITALS: BP 134/107; PULSE 120; RESP 16; TEMP 36.6; O2SAT 100; BMI 23.7
--- NOTE | 2022-10-01 21:01 | ED.ABDPAIN ---
HPI - Abdominal Pain General Time Seen by Provider: 21:01 Date Seen: 10/01/22 Chief Complaint: Abdominal Pain Stated Complaint: Vomiting Time Seen by Provider: 10/01/22 21:01 Source: patient, RN notes reviewed and old records reviewed Mode of arrival: ambulatory Limitations: no limitations History of Present Illness HPI narrative: Patient is a 31-year-old male with history of GERD who comes to the emergency room with abdominal pain. Patient notes the sudden onset of right lower abdominal pain which is new for him. It is associated with vomiting but no diarrhea. States he really has not had a lot to eat in the past 2 days because his GERD but has been acting up over the past month. He has not had fever or chills. He has not noticed any unusual bulging in his groin or into his scrotum and has no history of hernia. This has not happened to him in the past. Pain does not radiate into his back. He has not noticed any blood in his urine. He denies dysuria. He is unable to relax during our interactions. I did state that I needed to ask him questions and examine him prior to giving him any medications in this seems to frustrate him significantly. He tells me that he has had 1 month or even longer of increasing problems with his reflux. He is on omeprazole for that. He notes that this pain is different in came on suddenly today. No fever, back pain, history of kidney stones. Note nursing staff noted improvement of symptoms after saline flush. Patient symptoms worsened wants it was recognized that this was not medication. Related Data Home Medications Medication Instructions Recorded Confirmed albuterol sulfate 2.5 mg/3 mL mg 01/13/22 (0.083 %) solution for nebulization albuterol sulfate 90 mcg/actuation 1 - 2 puff inhalation Q4H PRN 01/13/22 06/25/22 aerosol inhaler (Ventolin HFA) famotidine 20 mg tablet 20 mg PO BID 01/13/22 06/25/22 lidocaine HCl 2 % mucosal solution 01/13/22 (Lidocaine Viscous) ondansetron 4 mg disintegrating mg 01/13/22 tablet pantoprazole 40 mg tablet,delayed mg PO 01/13/22 release sucralfate 1 gram tablet 01/13/22 acetaminophen 500 mg tablet 500 mg PO Q6H PRN 06/25/22 06/25/22 (Acetaminophen Extra Strength) cyclobenzaprine 10 mg tablet 10 mg PO TID PRN 06/25/22 06/25/22 fluticasone propionate 220 1 inh inhalation BID 06/25/22 06/25/22 mcg/actuation HFA aerosol inhaler (Flovent HFA) gabapentin 300 mg capsule mg 06/25/22 hydrocodone 5 mg-acetaminophen 325 1 tab PO BID PRN 06/25/22 06/25/22 mg tablet ibuprofen 800 mg tablet (IBU) 800 mg PO TID 06/25/22 06/25/22 meloxicam 15 mg tablet 15 mg PO DAILY 06/25/22 06/25/22 nabumetone 500 mg tablet 500 mg PO BID 06/25/22 06/25/22 naproxen 500 mg tablet,delayed 500 mg PO BID 06/25/22 06/25/22 release (EC-Naprosyn) ondansetron HCl 8 mg tablet 8 mg PO Q8H PRN 06/25/22 06/25/22 pantoprazole 40 mg tablet,delayed 40 mg PO DAILY 06/25/22 06/25/22 release (Protonix) sucralfate 100 mg/mL oral 1 g PO QID 06/25/22 06/25/22 suspension (Carafate) venlafaxine 75 mg capsule,extended 75 mg PO DAILY 06/25/22 06/25/22 release 24 hr (Effexor XR) Previous Rx's Medication Instructions Recorded dicyclomine 20 mg tablet 20 mg PO TID #45 tabs 01/13/22 omeprazole 40 mg capsule,delayed 40 mg PO DAILY #30 caps 01/13/22 release sucralfate 1 gram tablet (Carafate) 1 g PO Q6H #40 tabs 09/30/22 Allergies Allergy/AdvReac Type Severity Reaction Status Date / Time No Known Drug Allergies Allergy Verified 09/30/22 16:54 Review of Systems Status of ROS Reports: unobtainable due to medical condition Narrative Patient poorly intolerant to questioning. He does deny fever chills, cough congestion, diarrhea, constipation, dysuria, hematuria. [facility] Medical History Anxiety Eosinophilic esophagitis Femoroacetabular impingement of right hip Moderate persistent asthma, uncomplicated Mood disorder Psychosis Social History Smoking Status: Current every day smoker What tobacco products do you use: cigarettes Smoking packs per day: 1 Smoking cigarettes per day: 20.0 Years smoked: 17 Smoking pack-years: 17.00 Do you use any of these nicotine containing products: E-Cigarettes and Vaping Products Second hand tobacco smoke exposure: No How often do you have a drink containing alcohol: never AUDIT-C Alcohol total score: 0 Non-prescribed substance use: marijuana (any form) Caffeine: Yes service: No Exam Narrative: Exam Narrative: Very dramatic presentation. Great weighing and moaning. External ears eyes nose canoe clear. I did state that I would be unable to give him any medications until I did exam and he was able to answer questions. Now he is giving me one-word answers and yelling them at me. Eyes are clear. No evidence of tremulous. Oral cavity with moist mucous membranes. Heart with a tachycardic rate but normal rhythm. Lungs are clear in all lung martino. Abdomen is firm. He will not relax is abdomen for me I do have him bend his knees. He is able to sit up from a lying down position and sitting up without much difficulty. No CVA tenderness with percussion. He has a hypersensitivity palpation response to my touch on the right lower quadrant. No rebound tenderness. Exam again inconsistent. No unusual bulging or evidence of groin all hernia or testicular abnormality. Const: Vital Signs, click to edit/add: Vital Signs - 24 hr 10/01/22 21:00 10/01/22 21:05 10/01/22 22:03 Temperature 97.8 F 97.8 F 97.8 F Pulse Rate [Left P ulse Oximeter] 120 H 115 H Respiratory Rate 16 16 Blood Pressure [Le ft Upper Arm] 134/107 H 145/102 H Pulse Oximetry 100 100 Oxygen Delivery Me thod Room Air Room Air 10/01/22 21:10 Temperature Pulse Rate [Left P ulse Oximeter] Respiratory Rate Blood Pressure [Le ft Upper Arm] Pulse Oximetry 100 Oxygen Delivery Me thod Documenting provider has reviewed patient's vital signs: yes Course Course Hospital Course: At this time patient has a very dramatic presentation. Will give him Toradol 15 mg and Ativan 0.5 mg. 1 L of normal saline. It should be noted that after ordering this nursing discovered that this was not the correct patient and previous orders were canceled. Patient is also noted to been seen yesterday in the emergency room by . Farooq did not share this information with me. I look back at previous notes and he has had what appears to be chronic abdominal pain for quite some time. August it was noted that he had been on Vicodin for that. I do look at the [employer] and he has had frequent narcotic prescriptions only 14 in number approximately every 2 weeks by LISA Ac from the [facility]. Yesterday patient had a CT which was without acute findings. Reevaluation(s) Reevaluation #1: I do check on patient after medication administration. He is objectively moderately improved but states that he is still having pain. I did state to him that I learned of his visit yesterday and noted that his CT was normal at that time. I do not feel comfortable giving him any stronger pain medications in the form of her narcotic and this is conveyed to him. We could use droperidol 0.625 mg and he is receptive to that. He arrives with complaints of right lower quadrant pain but continues to grab his epigastrium while I am in the room. Note that behavior is much improved when we depart the room. Reevaluation #2: Patient is informed that his labs that have been returned are normal. He tells me that his abdomen is still hurting and I do suggest that we repeat the CT given pain out of proportion to exam. He states he would rather go home and smoke THC. I do have him sign AMA. As he is leaving I do offer Carafate or GI cocktail and he is receptive to GI cocktail. He is telling me that his feels like his insides are being ripped out. I do state to him that labs look good but I am happy to go forward with a CT. At about that time his urine comes back with 4+ ketones. He did receive 1 L of saline here tonight. I do request that he stay for more fluids and a CT but he is declining. Does appear to be able to make his own decisions and does not appear to be under the influence. Vital Signs Vital signs: Initial Vital Signs Temperature 97.8 F 10/01/22 21:00 Temperature Source Temporal Artery Scan 10/01/22 21:00 Pulse Rate 120 H 10/01/22 21:00 Respiratory Rate 16 10/01/22 21:00 Blood Pressure 134/107 H 10/01/22 21:00 Blood Pressure Mean 116 10/01/22 21:00 Blood Pressure Position Sitting 10/01/22 21:00 Pulse Oximetry 100 10/01/22 21:00 Oxygen Delivery Method 10/01/22 21:00 Vital Signs Temperature 97.8 F 10/01/22 21:00 Pulse Rate 120 H 10/01/22 21:00 Respiratory Rate 16 10/01/22 21:00 Blood Pressure 134/107 H 10/01/22 21:00 Pulse Oximetry 100 10/01/22 21:00 Oxygen Delivery Method 10/01/22 21:00 Temperature 97.8 F 10/01/22 22:03 Pulse Rate 115 H 10/01/22 22:03 Respiratory Rate 16 10/01/22 22:03 Blood Pressure 145/102 H 10/01/22 22:03 Pulse Oximetry 100 10/01/22 22:03 Oxygen Delivery Method 10/01/22 22:03 MDM - Abdominal Pain MDM Narrative Medical decision making narrative: 1. Acute on chronic abdominal pain-patient's laboratory values are reassuring at this time with no evidence of an elevated lactate, leukocytosis, abnormal LFTs and CRP is normal as well. With these findings and a negative CT yesterday as well as exam that did not suggest a medical emergency I felt that treating his pain with non narcotics was best. I did initially treat him with Toradol before I realized that he had had a history of significant GERD noted in his chart. Also gave him Ativan 0.5 mg and although he says he was not improved objectively it appeared he was. I then given droperidol 0.625 mg IV. Observations of patient were noted to have him be watching TV but he was very impatient and stated if we were not going to keep him he was going to leave. I do not have reason to keep him but of course suggested CT with his continued complaints but he declines. He did except a GI cocktail but declined any further fluids when it was noted the had 4+ ketonuria. Glucose is normal. He does sign AMA at this time. I did state that he could return if he change his mind about the abdominal CT. We will not be using narcotics for this particular pain. 2. Disposition -home with . Follow-up with Shabana Ac to set up GI consult. Signs AMA. Does appear to be able to make his own decisions and understand consequences of not following through with repeat CT or further fluids. He does agree that he will try to drink more fluids at home. Patient does note he will be going home to smoke THC. While he does have a history of underlying GERD, I am unsure of how much marijuana he is using and he may have a component of a hyper emesis type picture although there was no vomiting here in the ED. Medical Records Attestation: I reviewed the patient's medical records. Lab Data Attestation: I reviewed the patient's lab results. Labs: Lab Results 10/01/22 10/01/22 10/01/22 Range/Units 20:50 20:50 21:05 WBC 7.33 (4.50-11.00) K/uL RBC 4.23 L (4.30-5.90) m/uL Hgb 13.9 (13.5-17.5) gm/dL Hct 39.4 (37.0-53.0) % MCV 93 (80-100) fL MCH 33 (26-34) pg MCHC 35 (32-36) gm/dL RDW Coeff of Samy 11.2 L (11.5-15.5) % Plt Count 306 (140-440) K/uL Neut % (Auto) 69.4 (42.0-72.0) % Lymph % (Auto) 20.9 (20-44) % [place] % (Auto) 7.2 (0.0-11.0) % Eos % (Auto) 2.0 (0.0-7.0) % Baso % (Auto) 0.4 (0.0-3.0) % Neut # (Auto) 5.08 (1.7-7.0) K/uL Lymph # (Auto) 1.53 (0.90-2.90) K/uL [place] # (Auto) 0.50 (0.00-0.90) K/UL Eos # (Auto) 0.15 (0.00-0.50) K/uL Baso # (Auto) 0.03 (0.00-0.30) K/uL Sodium 135 (135-149) mmol/L Potassium 4.0 (3.6-5.1) mmol/L Chloride 103 (96-114) mmol/L Carbon Dioxide 22 (20-32) mmol/L BUN 5 (5-24) mg/dL Creatinine 0.7 (0.5-1.5) mg/dL Estimated Creat Clear 162.85 Estimated GFR 126 ml/min Glucose 101 (60-115) mg/dL Lactate (0.5-1.9) mmol/L Calcium 9.2 (8.4-10.6) mg/dL Total Bilirubin 0.8 (0.1-1.5) mg/dL AST 21 (12-35) U/L ALT 18 (4-50) U/L Alkaline Phosphatase 72 (40-150) U/L C-Reactive Protein 0.5 (0.5-1.0) mg/dL Total Protein 7.4 (6.0-8.3) g/dL Albumin 4.6 (3.3-5.0) g/dL Lipase 242 (23-300) U/L Urine Color Yellow (Yellow) Urine Appearance Clear (Clear) Urine pH 5.5 (5.0-8.5) Ur Specific [place] 1.025 (1.000-1.030) Urine Protein 1+ A (Negative) Urine Glucose (UA) Negative (Negative) Urine Ketones 4+ A (Negative) Urine Blood Trace-intact A (Negative) Urine Nitrite Negative (Negative) Urine Bilirubin 1+ A (Negative) Urine Urobilinogen 0.2 (0.2-1.0) Ur Leukocyte Esterase Negative (Negative) 10/01/22 Range/Units 21:05 WBC (4.50-11.00) K/uL RBC (4.30-5.90) m/uL Hgb (13.5-17.5) gm/dL Hct (37.0-53.0) % MCV (80-100) fL MCH (26-34) pg MCHC (32-36) gm/dL RDW Coeff of Samy (11.5-15.5) % Plt Count (140-440) K/uL Neut % (Auto) (42.0-72.0) % Lymph % (Auto) (20-44) % [place] % (Auto) (0.0-11.0) % Eos % (Auto) (0.0-7.0) % Baso % (Auto) (0.0-3.0) % Neut # (Auto) (1.7-7.0) K/uL Lymph # (Auto) (0.90-2.90) K/uL [place] # (Auto) (0.00-0.90) K/UL Eos # (Auto) (0.00-0.50) K/uL Baso # (Auto) (0.00-0.30) K/uL Sodium (135-149) mmol/L Potassium (3.6-5.1) mmol/L Chloride (96-114) mmol/L Carbon Dioxide (20-32) mmol/L BUN (5-24) mg/dL Creatinine (0.5-1.5) mg/dL Estimated Creat Clear Estimated GFR ml/min Glucose (60-115) mg/dL Lactate 0.7 (0.5-1.9) mmol/L Calcium (8.4-10.6) mg/dL Total Bilirubin (0.1-1.5) mg/dL AST (12-35) U/L ALT (4-50) U/L Alkaline Phosphatase (40-150) U/L C-Reactive Protein (0.5-1.0) mg/dL Total Protein (6.0-8.3) g/dL Albumin (3.3-5.0) g/dL Lipase (23-300) U/L Urine Color (Yellow) Urine Appearance (Clear) Urine pH (5.0-8.5) Ur Specific [place] (1.000-1.030) Urine Protein (Negative) Urine Glucose (UA) (Negative) Urine Ketones (Negative) Urine Blood (Negative) Urine Nitrite (Negative) Urine Bilirubin (Negative) Urine Urobilinogen (0.2-1.0) Ur Leukocyte Esterase (Negative) Discharge Plan Discharge Clinical Impression: Abdominal pain Patient Disposition: Left Against Medical Advice Condition: Improved Prescriptions: No Action sucralfate [Carafate] 1 gram tablet 1 g PO Q6H Qty: 40 0RF albuterol sulfate 2.5 mg /3 mL (0.083 %) solution for nebulization Label Comments: INHALE 3 ML (1 VIAL) VIA A NEBULIZER EVERY 4 HOURS NEEDED famotidine 20 mg tablet 20 mg PO BID Label Comments: TAKE ONE TABLET BY MOUTH TWICE DAILY albuterol sulfate [Ventolin HFA] 90 mcg/actuation HFA aerosol inhaler 1 - 2 puff INHALATION Q4H PRN Label Comments: INHALE ONE OR TWO PUFFS BY MOUTH EVERY FOUR HOURS FOR SHORTNESS OF BREATH sucralfate 1 gram tablet Label Comments: TAKE ONE TABLET BY MOUTH FOUR TIMES DAILY pantoprazole 40 mg tablet,delayed release (DR/EC) PO Label Comments: TAKE ONE TABLET BY MOUTH ONE TIME DAILY lidocaine HCl [Lidocaine Viscous] 2 % solution Label Comments: MIX 15-30 ML WITH AN EQUIVALENT AMOUNT OF LIQUID ANTACID/ANTIGAS AND TAKE BY MOUTH TWICE DAILY NEEDED ondansetron 4 mg tablet,disintegrating omeprazole 40 mg capsule,delayed release(DR/EC) 40 mg PO DAILY Qty: 30 3RF dicyclomine 20 mg tablet 20 mg PO TID Qty: 45 2RF Rx Instructions: for abdominal cramping acetaminophen [Acetaminophen Extra Strength] 500 mg tablet 500 mg PO Q6H PRN cyclobenzaprine 10 mg tablet 10 mg PO TID PRN fluticasone propionate [Flovent HFA] 220 mcg/actuation HFA aerosol inhaler 1 inh inhalation BID gabapentin 300 mg capsule Label Comments: TAKE ONE CAPSULE BY MOUTH AT BEDTIME hydrocodone-acetaminophen 5-325 mg tablet 1 tab PO BID PRN ibuprofen [IBU] 800 mg tablet 800 mg PO TID meloxicam 15 mg tablet 15 mg PO DAILY nabumetone 500 mg tablet 500 mg PO BID naproxen [EC-Naprosyn] 500 mg tablet,delayed release (DR/EC) 500 mg PO BID ondansetron HCl 8 mg tablet 8 mg PO Q8H PRN Rx Instructions: 1st dose 1-2 hr before radiation pantoprazole [Protonix] 40 mg tablet,delayed release (DR/EC) 40 mg PO DAILY sucralfate [Carafate] 100 mg/mL suspension 1 g PO QID venlafaxine [Effexor XR] 75 mg capsule,extended release 24hr 75 mg PO DAILY Follow Up/Referrals: Shabana Morgan, PAAngelC [Primary Care Provider] - Stand Alone Forms: [facility] Info Instructions
[2022-10-01 21:05] VITALS: TEMP 36.6
[2022-10-01] MEDS: 0.9 % SODIUM CHLORIDE 1000 ml 1,000 ML IV (21:05)
[2022-10-01] MEDS: KETOROLAC 15 MG/ML inj IVP (21:05)
[2022-10-01] MEDS: LORazepam 2 MG/ML inj 0.5 MG IVP (21:06)
[2022-10-01 21:10] VITALS: O2SAT 100
[2022-10-01 21:20] LABS: Lactate* 0.7 mmol/L (0.5-1.9)
[2022-10-01 21:21] LABS: Basophils Absolute Auto 0.03 K/uL (0.00-0.30); Basophils Percent Auto 0.4 % (0.0-3.0); Eosinophils Absolute Auto 0.15 K/uL (0.00-0.50); Hematocrit 39.4 % (37.0-53.0); Hemoglobin* 13.9 gm/dL (13.5-17.5); Immature Granulocytes Abs Auto 0.01 K/uL (0.00-0.30); Immature Granulocytes Pct Auto 0.1 %; Lymphocytes Absolute Auto 1.53 K/uL (0.90-2.90); Lymphocytes Percent Auto 20.9 % (20-44); Mean Corpuscular HGB Conc 35 gm/dL (32-36); Mean Corpuscular Hemoglobin 33 pg (26-34); Mean Corpuscular Volume 93 fL (80-100); Monocytes Percent Auto 7.2 % (0.0-11.0); Neutrophils Absolute Auto 5.08 K/uL (1.7-7.0); Neutrophils Percent Auto 69.4 % (42.0-72.0); Platelet Count* 306 K/uL (140-440); RDW Coefficient of Variation % 11.2 % (11.5-15.5); Red Blood Count 4.23 m/uL (4.30-5.90); White Blood Count* 7.33 K/uL (4.50-11.00)
[2022-10-01 21:37] LABS: Slide Review Reflex No
[2022-10-01 21:42] LABS: Chloride* 103 mmol/L (96-114)
[2022-10-01 21:43] LABS: Albumin* 4.6 g/dL (3.3-5.0); Sodium* 135 mmol/L (135-149)
[2022-10-01 21:45] LABS: Creatinine* 0.7 mg/dL (0.5-1.5); Est. Creatinine Clearance* 162.85; Estimated Glomerular Filt Rate 126 ml/min
[2022-10-01] MEDS: droperidoL 2.5 MG/ML inj 0.625 MG IV (21:45)
[2022-10-01 21:46] LABS: Alanine Aminotransferase* 18 U/L (4-50); Alkaline Phosphatase* 72 U/L (40-150); Aspartate Amino Transferase* 21 U/L (12-35); Bilirubin Total* 0.8 mg/dL (0.1-1.5); Blood Urea Nitrogen* 5 mg/dL (5-24); Carbon Dioxide* 22 mmol/L (20-32); Glucose* 101 mg/dL (60-115); Lipase* 242 U/L (23-300); Total Protein* 7.4 g/dL (6.0-8.3)
[2022-10-01 21:47] LABS: Calcium* 9.2 mg/dL (8.4-10.6)
[2022-10-01 21:49] LABS: C Reactive Protein* 0.5 mg/dL (0.5-1.0)
[2022-10-01 21:57] LABS: Appearance Urine Clear (Clear); Bilirubin Urine 1+ (Negative); Blood Urine Trace-intact (Negative); Color Urine Yellow (Yellow); Glucose Urine Negative (Negative); Ketones Urine 4+ (Negative); Leukocyte Esterase Urine Negative (Negative); Nitrite Urine Negative (Negative); Protein Urine 1+ (Negative); Specific Gravity Urine 1.025 (1.000-1.030); Urobilinogen Urine 0.2 (0.2-1.0); pH Urine 5.5 (5.0-8.5)
[2022-10-01 22:03] VITALS: BP 145/102; PULSE 115; RESP 16; TEMP 36.6; O2SAT 100
[2022-10-01] MEDS: GI COCKTAIL (VISC LIDO/ANTACID) 30 ML PO (22:16)
[2022-10-01 22:18] LABS: Squamous Epithelial Cell Urine Few (None-Few); WBC Urine 0-2 (0-5)
--- NOTE | 2022-10-01 22:27 | ED.NURSE ---
MD at bedside offering patient further workup, patient declines and says he wants to leave regardless of MD advice, pt states he will go home to smoke his THC, AMA form signed by pt.
== END 2022-10-01 22:29 | disposition left against medical advice (07) ==
PROVIDERS: Emergency Provider Family Medicine; PCP Physician Assistant Medical
DX: R10.9 Unspecified abdominal pain (principal)
CPT/HCPCS: 36415; 80053; 81001; 83605; 83690; 85025; 86140; 94761; 96361; 96374; 96375; 99284; A9270; J1790; J1885; J2060; J7030

== ENCOUNTER 2022-10-01 23:33 | Emergency (ER) | payer BC, SELFPAY ==
[2022-10-01 23:42] VITALS: BP 128/74; PULSE 115; RESP 18; TEMP 36.7; O2SAT 99; BMI 25.1
--- NOTE | 2022-10-02 00:18 | ED_ITS ---
HPI - General Adult General Chief complaint: Shortness of Breath/Dyspnea Stated complaint: hard time breathing Time Seen by Provider: 10/02/22 00:08 Source: patient Mode of arrival: ambulatory Limitations: no limitations History of Present Illness HPI narrative: 31-year-old male with his now 3rd ED visits within the last 24 hours presents because what he initially told registration was shortness of breath. Upon further clarification, he has epigastric pain when he takes a deep breath. He left our facility less than an hour ago. The notes and workup from Dr. Calixto is extensively reviewed as is the previous workup from Dr. Corey. He denies fever. There is no blood in his vomit. The nursing staff and myself to review him deliberately sticking his fingers down his throat on the cameras in his room. This is within attempt to make him retching throw up. He does not actually vomit from it, but he does retch. He is frequently yelling out in the room which apparently is consistent with his previous visits as well. Please see previous notes for documentation of deceptive narcotic practices on the part of the patient. There is no blood in his stools. There is no known history of clot. Nursing staff and security staff do report significant concern with me going into the room a myself due to his behavior. Past medical history, recent medications, recent narcotic prescriptions reviewed. Socially admits to marijuana use, tobacco user as well. No pertinent travel. Medications and prescriptions reviewed. ROS notable for anxiety, pain in his epigastrium with deep breath but with no true dyspnea. No palpitations, cardiac symptoms or chest pain. Abdominal symptoms are unchanged from previous notes. Otherwise denies times 12 systems. Related Data Home Medications Medication Instructions Recorded Confirmed albuterol sulfate 2.5 mg/3 mL mg 01/13/22 (0.083 %) solution for nebulization albuterol sulfate 90 mcg/actuation 1 - 2 puff inhalation Q4H PRN 01/13/22 06/25/22 aerosol inhaler (Ventolin HFA) famotidine 20 mg tablet 20 mg PO BID 01/13/22 06/25/22 lidocaine HCl 2 % mucosal solution 01/13/22 (Lidocaine Viscous) ondansetron 4 mg disintegrating mg 01/13/22 tablet pantoprazole 40 mg tablet,delayed mg PO 01/13/22 release sucralfate 1 gram tablet 01/13/22 acetaminophen 500 mg tablet 500 mg PO Q6H PRN 06/25/22 06/25/22 (Acetaminophen Extra Strength) cyclobenzaprine 10 mg tablet 10 mg PO TID PRN 06/25/22 06/25/22 fluticasone propionate 220 1 inh inhalation BID 06/25/22 06/25/22 mcg/actuation HFA aerosol inhaler (Flovent HFA) gabapentin 300 mg capsule mg 06/25/22 hydrocodone 5 mg-acetaminophen 325 1 tab PO BID PRN 06/25/22 06/25/22 mg tablet ibuprofen 800 mg tablet (IBU) 800 mg PO TID 06/25/22 06/25/22 meloxicam 15 mg tablet 15 mg PO DAILY 06/25/22 06/25/22 nabumetone 500 mg tablet 500 mg PO BID 06/25/22 06/25/22 naproxen 500 mg tablet,delayed 500 mg PO BID 06/25/22 06/25/22 release (EC-Naprosyn) ondansetron HCl 8 mg tablet 8 mg PO Q8H PRN 06/25/22 06/25/22 pantoprazole 40 mg tablet,delayed 40 mg PO DAILY 06/25/22 06/25/22 release (Protonix) sucralfate 100 mg/mL oral 1 g PO QID 06/25/22 06/25/22 suspension (Carafate) venlafaxine 75 mg capsule,extended 75 mg PO DAILY 06/25/22 06/25/22 release 24 hr (Effexor XR) Previous Rx's Medication Instructions Recorded dicyclomine 20 mg tablet 20 mg PO TID #45 tabs 01/13/22 omeprazole 40 mg capsule,delayed 40 mg PO DAILY #30 caps 01/13/22 release sucralfate 1 gram tablet (Carafate) 1 g PO Q6H #40 tabs 09/30/22 Allergies Allergy/AdvReac Type Severity Reaction Status Date / Time No Known Drug Allergies Allergy Verified 10/01/22 23:44 [facility] Medical History Anxiety Eosinophilic esophagitis Femoroacetabular impingement of right hip Moderate persistent asthma, uncomplicated Mood disorder Psychosis Social History Smoking Status: Current every day smoker What tobacco products do you use: cigarettes Smoking packs per day: 1 Smoking cigarettes per day: 20.0 Years smoked: 17 Smoking pack-years: 17.00 Do you use any of these nicotine containing products: E-Cigarettes and Vaping Products Second hand tobacco smoke exposure: No How often do you have a drink containing alcohol: never AUDIT-C Alcohol total score: 0 Non-prescribed substance use: marijuana (any form) Caffeine: Yes service: No Exam Const: Vital Signs, click to edit/add: Vital Signs - 24 hr 10/01/22 23:42 Temperature 98.0 F Pulse Rate [Right Pulse Oximeter] 115 H Respiratory Rate 18 Blood Pressure [Ri ght Upper Arm] 128/74 Pulse Oximetry 99 Oxygen Delivery Me thod Room Air Documenting provider has reviewed patient's vital signs: yes Other: Yells out frequently. As discussed we are watching him on camera and do note that he puts his fingers down his throat repeatedly to make himself retch. Agitated with poor insight. HENMT: Common normals: normocephalic Head and scalp: normocephalic Mouth: oral and palatal mucosa normal Throat: posterior oropharynx normal Eye: Common normals: conjunctivae normal General eye: normal appearance of both eyes Conjunctiva: conjunctiva(e) normal Neck & C-Spine: Common normals: no lymphadenopathy Resp: Common normals: normal respiratory effort, no use of accessory muscles and clear to auscultation bilaterally Effort & inspection: able to speak in complete sentences Auscultation: clear to auscultation bilaterally Cardio: Common normals: regular rate, regular rhythm, S1 normal heart sound, S2 normal heart sound, no murmurs and peripheral pulses 2+ throughout Rate: regular rate Rhythm: regular rhythm Heart sounds: S1 normal and S2 normal Peripheral pulses: pulses 2+ throughout GI: Other: Purposefully tenses up abdominal muscles on exam. There is no guarding underneath this. Bowel sounds are normoactive in all 4 quadrants. Liver is not enlarged. No mass. Extremity: Common normals: normal to inspection and normal capillary refill Neuro: Speech: speech normal Motor exam: no tremor noted and no movement abnormalities noted Psych: Attitude: agitated Insight: fair Judgement: limited Skin: Common normals: no rashes or lesions noted General skin exam: no rashes or lesions noted Course Vital Signs Vital signs: Initial Vital Signs Temperature 98.0 F 10/01/22 23:42 Temperature Source Temporal Artery Scan 10/01/22 23:42 Pulse Rate 115 H 10/01/22 23:42 Respiratory Rate 18 10/01/22 23:42 Blood Pressure 128/74 10/01/22 23:42 Blood Pressure Mean 92 10/01/22 23:42 Blood Pressure Position Sitting 10/01/22 23:42 Pulse Oximetry 99 10/01/22 23:42 Oxygen Delivery Method 10/01/22 23:42 Vital Signs Temperature 98.0 F 10/01/22 23:42 Pulse Rate 115 H 10/01/22 23:42 Respiratory Rate 18 10/01/22 23:42 Blood Pressure 128/74 10/01/22 23:42 Pulse Oximetry 99 10/01/22 23:42 Oxygen Delivery Method 10/01/22 23:42 Temperature 98.0 F 10/01/22 23:42 Pulse Rate 115 H 10/01/22 23:42 Respiratory Rate 18 10/01/22 23:42 Blood Pressure 128/74 10/01/22 23:42 Pulse Oximetry 99 10/01/22 23:42 Oxygen Delivery Method 10/01/22 23:42 Medical Decision Making MDM Narrative Medical decision making narrative: I have extensively reviewed the labs performed within the last 2 visits. No leukocytosis. Normal CRP. Normal lactate. No anemia. Normal liver enzymes and reassuring labs overall. I did elect to perform an EKG as he was tachycardic on arrival. At the time of my exam, heart rate is 100. This does show sinus tachycardia but with no significant ST or T-wave abnormalities. I counseled patient that based on findings, I do not recommend advanced imaging. I review the interventions that have already been offered by my colleagues and do not recommend further symptomatic GI treatment. I do think that his persistent marijuana use and potentially use of stimulants and hallucinogens is impairing his ability to navigate and cope with his symptoms. He has already been given a benzodiazepine, I will not be repeating this especially since he has been deceptive regarding his narcotic usage. Note that these symptoms have been ongoing for over a month. Extensive outpatient prescriptions reviewed as well. I am not going to stop any of these. There are no signs of any emergent issues in the middle of the night. Patient is instructed that he will be offered only Tylenol and a Flexeril as well as Zofran. This will be the extent of our offered treatment in the emergency department today. He is to follow up with his primary care provider regarding ongoing chronic GI issues as there were no previously identified emergent issues less than a couple of hours ago. He did verbalize understanding and agreement. He is welcome back if his symptoms evolve or change. ECG Data Attestation: I personally reviewed and interpreted this ECG as follows: Prior ECG tracings: not available for review Interpretation: Sinus tachycardia. Recorded rate is 130. No significant ST or T-wave abnormalities. Discharge Plan Discharge Clinical Impression: Abdominal pain Patient Disposition: Home, Self-Care Condition: Stable Instructions: Abdominal Pain (ED) Additional Instructions: Have extensively reviewed the notes from the 2 prior emergency physicians you have seen within the last 24 hours and the extensive blood and test workup that you have undergone. As we discussed, I will not be repeating any blood workup for your abdominal pain. You will not be given any narcotic pain medication. Your symptoms did not previously improved with GI cocktail or the other interventions offered by the 2 previous physicians. Because of this, I do not think it will be useful to repeat those. I recommend that you follow-up with your primary care provider to discuss long-term pain control options. It is curious that you have gone through your entire supply of narcotics in a short period of time and were not forthcoming with the details regarding this. I will be sending a copy of my note to your primary care provider. I recommend you avoid alcohol, continue using your omeprazole and other prescribed medications to help with her stomach. Avoid carbonated beverages and eat a soft, bland diet. Drink plenty of fluids. I have also given you a limited supply of Zofran which is an anti nausea medicine that you may use to help reduce the vomiting. This will help your stomach ultimately feel better as well. Smoking marijuana will ultimately cause you to have more ongoing abdominal pain and nausea. Activity Level: Activity as Tolerated Discharge Diet: Regular Prescriptions: No Action sucralfate [Carafate] 1 gram tablet 1 g PO Q6H Qty: 40 0RF albuterol sulfate 2.5 mg /3 mL (0.083 %) solution for nebulization Label Comments: INHALE 3 ML (1 VIAL) VIA A NEBULIZER EVERY 4 HOURS NEEDED famotidine 20 mg tablet 20 mg PO BID Label Comments: TAKE ONE TABLET BY MOUTH TWICE DAILY albuterol sulfate [Ventolin HFA] 90 mcg/actuation HFA aerosol inhaler 1 - 2 puff INHALATION Q4H PRN Label Comments: INHALE ONE OR TWO PUFFS BY MOUTH EVERY FOUR HOURS FOR SHORTNESS OF BREATH sucralfate 1 gram tablet Label Comments: TAKE ONE TABLET BY MOUTH FOUR TIMES DAILY pantoprazole 40 mg tablet,delayed release (DR/EC) PO Label Comments: TAKE ONE TABLET BY MOUTH ONE TIME DAILY lidocaine HCl [Lidocaine Viscous] 2 % solution Label Comments: MIX 15-30 ML WITH AN EQUIVALENT AMOUNT OF LIQUID ANTACID/ANTIGAS AND TAKE BY MOUTH TWICE DAILY NEEDED ondansetron 4 mg tablet,disintegrating omeprazole 40 mg capsule,delayed release(DR/EC) 40 mg PO DAILY Qty: 30 3RF dicyclomine 20 mg tablet 20 mg PO TID Qty: 45 2RF Rx Instructions: for abdominal cramping acetaminophen [Acetaminophen Extra Strength] 500 mg tablet 500 mg PO Q6H PRN cyclobenzaprine 10 mg tablet 10 mg PO TID PRN fluticasone propionate [Flovent HFA] 220 mcg/actuation HFA aerosol inhaler 1 inh inhalation BID gabapentin 300 mg capsule Label Comments: TAKE ONE CAPSULE BY MOUTH AT BEDTIME hydrocodone-acetaminophen 5-325 mg tablet 1 tab PO BID PRN ibuprofen [IBU] 800 mg tablet 800 mg PO TID meloxicam 15 mg tablet 15 mg PO DAILY nabumetone 500 mg tablet 500 mg PO BID naproxen [EC-Naprosyn] 500 mg tablet,delayed release (DR/EC) 500 mg PO BID ondansetron HCl 8 mg tablet 8 mg PO Q8H PRN Rx Instructions: 1st dose 1-2 hr before radiation pantoprazole [Protonix] 40 mg tablet,delayed release (DR/EC) 40 mg PO DAILY sucralfate [Carafate] 100 mg/mL suspension 1 g PO QID venlafaxine [Effexor XR] 75 mg capsule,extended release 24hr 75 mg PO DAILY Follow Up/Referrals: Shabana Morgan, TASHA [Primary Care Provider] - 2 Days (Recheck ongoing abdominal pain. Please review narcotic deceptive practices) Stand Alone Forms: [email or web address] Info Instructions
[2022-10-02 00:20] VITALS: BP 138/74; PULSE 105; RESP 18; TEMP 36.7; O2SAT 99
[2022-10-02] MEDS: ACETAMINOPHEN 500 MG TABLET 1000 MG PO (00:22)
[2022-10-02] MEDS: ONDANSETRON ODT 4 MG TAB PO (00:23)
[2022-10-02] MEDS: CYCLOBENZAPRINE HCL 10 MG TABLET PO (00:23)
[2022-10-02 00:45] VITALS: BP 138/74; PULSE 105; RESP 18; TEMP 36.7
== END 2022-10-02 00:45 | disposition home or self-care (01) ==
LOC: ED 10-02 00:23
PROVIDERS: Emergency Provider Family Medicine; PCP Physician Assistant Medical
DX: R10.9 Unspecified abdominal pain (principal)
CPT/HCPCS: 93005; 99282; 99283; 99284; A9270

== ENCOUNTER 2024-12-19 09:46 | Outpatient (CLI) | payer BC, SELFPAY | END 2024-12-19 09:47 | disposition home or self-care (01) | PROVIDERS: PCP Physician Assistant Medical; Visit Provider Physician Assistant Surgical | DX: R11.2 Nausea with vomiting, unspecified (principal); R11.14 Bilious vomiting | CPT/HCPCS: 80076; 83690 ==